=== PATIENT | male | born 1975 | race Caucasian/White ===

== ENCOUNTER 2017-08-19 21:27 | Observation (INO) | payer OTHER ==
--- NOTE | 2017-08-19 21:39 | ED ---
General Adult HPI - General Chief complaint: Chest Pain Stated complaint: Chest Pain Time Seen by Provider: 08/19/17 21:38 Source: patient, RN notes reviewed, old records reviewed Mode of arrival: wheelchair Limitations: no limitations - History of Present Illness Initial comments: This is a 42-year-old male to the ER for reevaluation chest pain left-sided chest pain. Left-sided pressure-like chest pain. Patient has no medical history, former smoker, no family history. Patient takes no medications. Patient's pain has been 3 days left-sided paraplegia coming to, no modifying factors not worse with exertion, no taking a deep breath. No shortness of breath no diaphoresis. Patient has no appetite issues, no nausea or vomiting. No recent fevers. No travel history no sick contacts. - Related Data Home Medications Medication Instructions Recorded Confirmed Famciclovir [Famvir] 500 mg PO Q8HR PRN 08/19/17 08/19/17 Testosterone [Testim 1%] 5 gm TOPICAL DAILY 08/19/17 08/19/17 Allergies Allergy/AdvReac Type Severity Reaction Status Date / Time No Known Allergies Allergy Verified 08/19/17 22:08 Review of Systems ROS Statement: Those systems with pertinent positive or pertinent negative responses have been documented in the HPI. ROS Other: All systems not noted in ROS Statement are negative. Past Medical History Additional Past Medical History / Comment(s): hypoglycemia. History of Any Multi-Drug Resistant Organisms: None Reported Past Surgical History: Back Surgery Past Psychological History: No Psychological Hx Reported Smoking Status: Former smoker Past Alcohol Use History: Daily Past Drug Use History: None Reported General Exam Limitations: no limitations General appearance: alert, in no apparent distress Head exam: Present: atraumatic, normocephalic, normal inspection Eye exam: Present: normal appearance, PERRL, EOMI. Absent: scleral icterus, conjunctival injection, periorbital swelling ENT exam: Present: normal exam, mucous membranes moist Neck exam: Present: normal inspection. Absent: tenderness, meningismus, lymphadenopathy Respiratory exam: Present: normal lung sounds bilaterally. Absent: respiratory distress, wheezes, rales, rhonchi, stridor Cardiovascular Exam: Present: regular rate, normal rhythm, normal heart sounds. Absent: systolic murmur, diastolic murmur, rubs, gallop, clicks GI/Abdominal exam: Present: soft, normal bowel sounds. Absent: distended, tenderness, guarding, rebound, rigid Extremities exam: Present: normal inspection, full ROM, normal capillary refill. Absent: tenderness, pedal edema, joint swelling, calf tenderness Back exam: Present: normal inspection Neurological exam: Present: alert, oriented X3, CN II-XII intact Psychiatric exam: Present: normal affect, normal mood Skin exam: Present: warm, dry, intact, normal color. Absent: rash Course Vital Signs 08/19/17 08/19/17 08/19/17 21:30 22:08 22:59 Temperature 98.2 F Pulse Rate 74 62 Pulse Rate [ 81 [employer] ] Respiratory 16 18 Rate Blood Pressure 160/85 129/77 O2 Sat by Pulse 97 99 Oximetry - Reevaluation(s) Reevaluation #1: 08/19/17 23:42 Patient admitted to the clinic chest pain here in the ER EKG Findings - EKG Comments: EKG Findings:: EKG shows normal sinus rhythm rate of 70, KS 154, QRS 80, QTC 444 Medical Decision Making - Medical Decision Making 42 really ER for chest pain. No cardiac risk factors the patient remained chest pain here in the ER. Patient has CT which is negative for PE, patient will be admitted for cardiac observation - Lab Data Result diagrams: 08/19/17 21:30 08/19/17 21:30 Lab Results 08/19/17 08/19/17 08/19/17 Range/Units 21:30 21:30 21:30 WBC 7.9 (3.8-10.6) k/uL RBC 4.70 (4.30-5.90) m/uL Hgb 14.4 (13.0-17.5) gm/dL Hct 41.0 (39.0-53.0) % MCV 87.3 (80.0-100.0) fL MCH 30.7 (25.0-35.0) pg MCHC 35.2 (31.0-37.0) g/dL RDW 12.7 (11.5-15.5) % Plt Count 217 (150-450) k/uL Neutrophils % 52 % Lymphocytes % 32 % Monocytes % 5 % Eosinophils % 7 % Basophils % 1 % Neutrophils # 4.1 (1.3-7.7) k/uL Lymphocytes # 2.5 (1.0-4.8) k/uL Monocytes # 0.4 (0-1.0) k/uL Eosinophils # 0.6 (0-0.7) k/uL Basophils # 0.1 (0-0.2) k/uL PT (9.0-12.0) sec INR (<1.2) APTT (22.0-30.0) sec D-Dimer (<0.60) mg/L FEU Sodium 140 (137-145) mmol/L Potassium 4.0 (3.5-5.1) mmol/L Chloride 103 (98-107) mmol/L Carbon Dioxide 27 (22-30) mmol/L Anion Gap 10 mmol/L BUN 19 (9-20) mg/dL Creatinine 1.00 (0.66-1.25) mg/dL Est GFR (MDRD) Af Amer >60 (>60 ml/min/1.73 sqM) Est GFR (MDRD) Non-Af >60 (>60 ml/min/1.73 sqM) Glucose 88 (74-99) mg/dL Calcium 9.7 (8.4-10.2) mg/dL Magnesium 2.1 (1.6-2.3) mg/dL Total Bilirubin 0.3 (0.2-1.3) mg/dL AST 32 (17-59) U/L ALT 63 (21-72) U/L Alkaline Phosphatase 65 (38-126) U/L Total Creatine Kinase 267 H (55-170) U/L CK-MB (CK-2) 1.7 (0.0-2.4) ng/mL CK-MB (CK-2) Rel Index 0.6 Troponin I <0.012 (0.000-0.034) ng/mL Total Protein 7.3 (6.3-8.2) g/dL Albumin 4.3 (3.5-5.0) g/dL Lipase 125 (23-300) U/L 08/19/ Range/Units 21:30 WBC (3.8-10.6) k/uL RBC (4.30-5.90) m/uL Hgb (13.0-17.5) gm/dL Hct (39.0-53.0) % MCV (80.0-100.0) fL MCH (25.0-35.0) pg MCHC (31.0-37.0) g/dL RDW (11.5-15.5) % Plt Count (150-450) k/uL Neutrophils % % Lymphocytes % % Monocytes % % Eosinophils % % Basophils % % Neutrophils # (1.3-7.7) k/uL Lymphocytes # (1.0-4.8) k/uL Monocytes # (0-1.0) k/uL Eosinophils # (0-0.7) k/uL Basophils # (0-0.2) k/uL PT 9.7 (9.0-12.0) sec INR 1.0 (<1.2) APTT 22.9 (22.0-30.0) sec D-Dimer 0.85 H (<0.60) mg/L FEU Sodium (137-145) mmol/L Potassium (3.5-5.1) mmol/L Chloride (98-107) mmol/L Carbon Dioxide (22-30) mmol/L Anion Gap mmol/L BUN (9-20) mg/dL Creatinine (0.66-1.25) mg/dL Est GFR (MDRD) Af Amer (>60 ml/min/1.73 sqM) Est GFR (MDRD) Non-Af (>60 ml/min/1.73 sqM) Glucose (74-99) mg/dL Calcium (8.4-10.2) mg/dL Magnesium (1.6-2.3) mg/dL Total Bilirubin (0.2-1.3) mg/dL AST (17-59) U/L ALT (21-72) U/L Alkaline Phosphatase (38-126) U/L Total Creatine Kinase (55-170) U/L CK-MB (CK-2) (0.0-2.4) ng/mL CK-MB (CK-2) Rel Index Troponin I (0.000-0.034) ng/mL Total Protein (6.3-8.2) g/dL Albumin (3.5-5.0) g/dL Lipase (23-300) U/L - Radiology Data Radiology results: report reviewed (CXR is negative), image reviewed Critical Care Time Critical Care Time: Yes Total Critical Care Time: 31 Disposition Clinical Impression: Chest pain Disposition: ADMITTED IP TO THIS [facility] Condition: Good Instructions: Chest Pain (ED) Referrals: Nonstaff,Physician [REFERRING] - 1-2 days
[2017-08-19 21:54] LABS: Basophils # (A) 0.1 k/uL (0-0.2); Basophils % (A) 1 %; Eosinophils # (A) 0.6 k/uL (0-0.7); Eosinophils % (A) 7 %; HGB 14.4 gm/dL (13.0-17.5); Lymphocytes # (A) 2.5 k/uL (1.0-4.8); Lymphocytes % (A) 32 %; MCH 30.7 pg (25.0-35.0); MCHC 35.2 g/dL (31.0-37.0); MCV 87.3 fL (80.0-100.0); Mean Platelet Volume 6.7; Monocytes # (A) 0.4 k/uL (0-1.0); Monocytes % (A) 5 %; Neutrophils # (A) 4.1 k/uL (1.3-7.7); Neutrophils % (A) 52 %; Platelet Count 217 k/uL (150-450); RDW 12.7 % (11.5-15.5); WBC 7.9 k/uL (3.8-10.6)
--- NOTE | 2017-08-19 21:57 | XR ---
EXAMINATION TYPE: XR chest 2V DATE OF EXAM: 08/19/2017 COMPARISON: None HISTORY: 42-year-old male with chest pain TECHNIQUE: AP and lateral views FINDINGS: Heart is upper limits of normal in size. Some peribronchial cuffing is noted. No consolidation or ple ural effusion. Aorta and pulmonary vasculature within normal limits. IMPRESSION: Some peribronchial cuffing could represent bronchitis or chronic asthma. Otherwise, no acute cardiopu lmonary process.
[2017-08-19] MEDS ORDERED: RX INFO: IV CONTRAST WAS GIVEN 1 EACH MISC MISCELLANE PRN (22:00)
[2017-08-19 22:12] LABS: ALT 63 U/L (21-72); AST 32 U/L (17-59); Albumin 4.3 g/dL (3.5-5.0); Alkaline Phosphatase 65 U/L (38-126); Anion Gap 10 mmol/L; Blood Urea Nitrogen 19 mg/dL (9-20); Calcium 9.7 mg/dL (8.4-10.2); Carbon Dioxide 27 mmol/L (22-30); Chloride 103 mmol/L (98-107); Glucose 88 mg/dL (74-99); Lipase 125 U/L (23-300); Magnesium 2.1 mg/dL (1.6-2.3); Sodium 140 mmol/L (137-145); Total Bilirubin 0.3 mg/dL (0.2-1.3); Total Protein 7.3 g/dL (6.3-8.2)
[2017-08-19 22:15] LABS: Creatine Kinase 267 U/L (55-170)
[2017-08-19 22:21] LABS: D-Dimer 0.85 mg/L FEU (<0.60); Partial Thromboplastin Time 22.9 sec (22.0-30.0); Prothrombin Time 9.7 sec (9.0-12.0)
[2017-08-19 22:28] LABS: Creatine Kinase MB 1.7 ng/mL (0.0-2.4); Troponin I <0.012 ng/mL (0.000-0.034)
--- NOTE | 2017-08-19 23:06 | CT ---
EXAM: CT Angiography Chest With Intravenous Contrast CLINICAL HISTORY: Reason: Pain TECHNIQUE: Axial computed tomographic angiography images of the chest with intravenous contrast using pulmonary embolism protocol. DLP is 587.50 mGy-cm. This CT exam was performed using one or more of the following dose reduction techniques: automated exposure control, adjustment of the mA and/or kV according to patient size, and/or use of iterative reconstruction technique. MIP reconstructed images were created and reviewed. COMPARISON: No relevant prior studies available. FINDINGS: Pulmonary arteries: No evidence of pulmonary embolus. Aorta: No acute findings. No thoracic aortic aneurysm. Lungs: Lungs are clear. No mass. Pleural space: No pneumothorax, pleural effusion, or pericardial effusion. Heart: Heart and mediastinum are within normal limits. No significant pericardial effusion. No evidence of RV dysfunction. Bones/joints: Osseous structures are intact. No acute fracture. No dislocation. Soft tissues: Unremarkable. Lymph nodes: Unremarkable. No enlarged lymph nodes. IMPRESSION: No acute findings.
[2017-08-19] MEDS ORDERED: MORPHINE SULFATE 5 MG/ML SYRINGE IV PRN (23:40)
[2017-08-19] MEDS ORDERED: HEPARIN SODIUM,PORCINE 5,000 UNIT/ML 1 ML VIAL IV PRN (23:40)
[2017-08-19] MEDS ORDERED: ASPIRIN 81 MG PO STA (23:40)
[2017-08-19] MEDS ORDERED: NITROGLYCERIN SL TABS 0.4 MG TAB SUBLINGUAL PRN (23:40)
[2017-08-19] MEDS ORDERED: HEPARIN SODIUM,PORCINE 5,000 UNIT/ML 1 ML VIAL IV ONE (23:40)
[2017-08-19] MEDS ORDERED: HEPARIN SOD,PORK IN 0.45% NACL 25,000 UNIT in 0.45% NACL 1 500ML.BAG IV SCH (23:45)
[2017-08-20] MEDS: SODIUM CHLORIDE 0.9% 1,000 ML IV SCH ×2 (00:05→12:33)
[2017-08-20 00:56] VITALS: BMI 40.1
[2017-08-20 03:10] LABS: Mean Platelet Volume 6.7; Platelet Count 201 k/uL (150-450)
[2017-08-20 03:38] LABS: Cholesterol 178 mg/dL (<200); Creatine Kinase 249 U/L (55-170); HDL Cholesterol 47 mg/dL (40-60); LDL Cholesterol,Calculated 101 mg/dL (0-99); Triglycerides 150 mg/dL (<150)
[2017-08-20 03:51] LABS: Creatine Kinase MB 1.5 ng/mL (0.0-2.4); Troponin I <0.012 ng/mL (0.000-0.034)
[2017-08-20 07:39] VITALS: RESP 18
--- NOTE | 2017-08-20 08:50 | P.CRDCN ---
History of Present Illness Consult date: 08/20/17 Requesting physician: Lana Nolan Consult reason: chest pain Chief complaint: Chest pain History of present illness: This is a pleasant 42-year-old gentleman with no prior documented history of hypertension, no diabetes, no hyperlipidemia, quit smoking several years ago, states that he drinks 10-12 alcoholic beverages per week, he presents to the hospital with symptoms of what he describes as an ache in the left side of his chest. He states that the symptoms come and go, they'll occur with or without activity. They last a few seconds, then dissipate, and then return. He denies any associated nausea, no shortness of breath, no diaphoresis. On examination, he does have some chest wall tenderness and does also state that when he takes a very deep breath he can notice the discomfort. He was out shoveling the snow yesterday without any symptoms. EKG on presentation here showed normal sinus rhythm with no acute changes. CBC normal. Sodium 140, potassium 4.0, BUN 19, creatinine 1.0. Troponin's 0.012 2. Cholesterol 178, LDL 101, triglycerides 150, HDL 47. D-dimer 0.8. CTA of the chest negative for pulmonary embolism. Chest x-ray shows some peribronchial cuffing which could represent bronchitis or chronic asthma otherwise no acute cardiopulmonary process. At the time of my examination this morning, he is currently chest pain-free unless he takes a very deep breath, then he can reproduce the pain. Blood pressure 124/70 with a heart rate in the 60s, 96% on room air. Past Medical History Additional Past Medical History / Comment(s): hypoglycemia. History of Any Multi-Drug Resistant Organisms: None Reported Past Surgical History: Back Surgery Past Psychological History: No Psychological Hx Reported Smoking Status: Former smoker Past Alcohol Use History: Daily Past Drug Use History: None Reported - Past Family History Father Family Medical History: Hypertension, Musculoskeletal Disorder Mother Family Medical History: No Reported History Medications and Allergies Home Medications Medication Instructions Recorded Confirmed Type Famciclovir [Famvir] 500 mg PO Q8HR PRN 08/19/17 08/19/17 History Testosterone [Testim 1%] 5 gm TOPICAL DAILY 08/19/17 08/19/17 History Allergies Allergy/AdvReac Type Severity Reaction Status Date / Time No Known Allergies Allergy Verified 08/19/17 22:08 Physical Exam Vitals: Vital Signs Temp Pulse Pulse Resp BP BP Pulse Ox 08/20/17 04:00 98.4 F 61 18 125/70 96 08/20/17 00:12 97.0 F L 08/20/17 00:10 97.5 F L 62 16 122/73 97 08/19/17 23:59 68 18 124/77 98 08/19/17 22:59 62 18 129/77 99 08/19/17 22:08 81 08/19/17 21:30 98.2 F 74 16 160/85 97 Intake and Output 08/19/17 08/20/17 08/20/17 22:59 06:59 14:59 Intake Total 132.333 Balance 132.333 Intake: Intake, IV Titration 132.333 Amount Heparin Sod,Pork in 0.45% 132.333 NaCl 25,000 unit In 0.45 % NaCl 1 500ml.bag @ 8.2 UNITS/KG/HR 20.08 mls/hr IV .Q24H [facility] Rx#: [id number] Other: Voiding Method Toilet # Voids 1 Weight 122.47 kg 130.5 kg PHYSICAL EXAMINATION: HEENT: [Head is atraumatic, normocephalic. Pupils equal, round. Neck is supple. There is no elevated jugular venous pressure.] HEART EXAMINATION: [Heart S1, S2 normal. No murmur or gallop heard.] CHEST EXAMINATION:[ Lungs are clear to auscultation and precussion. No chest wall tenderness is noted on palpation or with deep breathing.] ABDOMEN: [ Soft, nontender. Bowel sounds are heard. No organomegaly noted]. EXTREMITIES:[ 2+ peripheral pulses with no evidence of peripheral edema and no calf tenderness noted]. NEUROLOGIC [patient is awake, alert and oriented -3.] . Results 08/20/17 02:58 08/19/17 21:30 Cardiac Enzymes 08/19/17 08/19/17 08/20/17 Range/Units 21:30 21:30 02:58 AST 32 (17-59) U/L CK-MB (CK-2) 1.7 1.5 (0.0-2.4) ng/mL Troponin I <0.012 <0.012 (0.000-0.034) ng/mL Coagulation 08/19/17 08/20/17 Range/Units 21:30 06:00 PT 9.7 (9.0-12.0) sec APTT 22.9 26.6 (22.0-30.0) sec Lipids 08/20/17 Range/Units 02:58 Triglycerides 150 H (<150) mg/dL Cholesterol 178 (<200) mg/dL HDL Cholesterol 47 (40-60) mg/dL CBC 08/19/17 08/20/17 Range/Units 21:30 02:58 WBC 7.9 (3.8-10.6) k/uL RBC 4.70 (4.30-5.90) m/uL Hgb 14.4 (13.0-17.5) gm/dL Hct 41.0 (39.0-53.0) % Plt Count 217 201 (150-450) k/uL Comprehensive Metabolic Panel 08/19/17 Range/Units 21:30 Sodium 140 (137-145) mmol/L Potassium 4.0 (3.5-5.1) mmol/L Chloride 103 (98-107) mmol/L Carbon Dioxide 27 (22-30) mmol/L BUN 19 (9-20) mg/dL Creatinine 1.00 (0.66-1.25) mg/dL Glucose 88 (74-99) mg/dL Calcium 9.7 (8.4-10.2) mg/dL AST 32 (17-59) U/L ALT 63 (21-72) U/L Alkaline Phosphatase 65 (38-126) U/L Total Protein 7.3 (6.3-8.2) g/dL Albumin 4.3 (3.5-5.0) g/dL Current Medications Generic Name Dose Route Start Last Admin Trade Name Freq PRN Reason Stop Dose Admin Aspirin 325 mg 08/21/17 09:00 Aspirin PO DAILY [facility] Atorvastatin Calcium 80 mg 08/20/17 09:00 Lipitor PO DAILY [facility] Heparin Sodium (Porcine) 0 unit 08/19/17 23:40 08/20/17 06:45 Heparin IV 4,000 unit Q6HR PRN Administration Low PTT Protocol Heparin Sodium/Sodium Chloride 500 mls @ 20.08 mls/hr 08/19/17 23:45 06:42 25,000 unit/ Sodium Chloride IV 11.16 units/kg/hr .Q24H [facility] 27.33 mls/hr Protocol Titration 8.2 UNITS/KG/HR Sodium Chloride 1,000 mls @ 100 mls/hr 08/19/17 23:45 08/20/17 00:05 Saline 0.9% IV 100 mls/hr .Q10H [facility] Administration Metoprolol Tartrate 25 mg 08/20/17 09:00 Lopressor PO BID [facility] Miscellaneous Information 1 each 08/19/17 22:00 08/19/17 22:59 Rx Info: Iv Contrast Was Given MISCELLANE 08/21/17 22:00 1 each DAILY PRN Administration Per Protocol Morphine Sulfate 4 mg 08/19/17 23:40 Morphine Sulfate IV Q5M PRN Chest Pain Nitroglycerin 0.4 mg 08/19/17 23:40 Nitrostat SUBLINGUAL Q5M PRN Chest Pain Intake and Output 08/19/17 08/20/17 08/20/17 22:59 06:59 14:59 Intake Total 132.333 Balance 132.333 Intake: Intake, IV Titration 132.333 Amount Heparin Sod,Pork in 0.45% 132.333 NaCl 25,000 unit In 0.45 % NaCl 1 500ml.bag @ 8.2 UNITS/KG/HR 20.08 mls/hr IV .Q24H [facility] Rx#: [id number] Other: Voiding Method Toilet # Voids 1 Weight 122.47 kg 130.5 kg 08/20/17 02:58 08/19/17 21:30 EKG Interpretations (text) EKG shows normal sinus rhythm with no acute changes. Assessment and Plan Plan: Assessment and plan #1 chest discomfort, atypical for acute coronary syndrome. Troponins negative 2. EKG shows normal sinus rhythm with no acute changes. #2 coronary risk factors negative for hypertension, no diabetes, no hyperlipidemia, nonsmoker. Plan We will obtain an echocardiogram with Doppler study. Obtain third troponin value. Patient has been recommended to undergo stress testing which will be ordered today. Further recommendations will be based on these findings and the patient's clinical course. DNP note has been reviewed, I agree with a documented findings and plan of care. Patient was seen and examined.
[2017-08-20] MEDS ORDERED: ATORVASTATIN 80 MG TAB PO SCH (09:00)
[2017-08-20] MEDS ORDERED: METOPROLOL TARTRATE 25 MG TAB PO SCH (09:00)
[2017-08-20 09:58] VITALS: TEMP 97.1
[2017-08-20 10:08] LABS: Creatine Kinase 228 U/L (55-170)
[2017-08-20 10:21] LABS: Creatine Kinase MB 1.4 ng/mL (0.0-2.4); Troponin I <0.012 ng/mL (0.000-0.034)
--- NOTE | 2017-08-20 11:52 | ECHOF ---
Referral Reason: MEASUREMENTS -------- HEIGHT: 180.3 cm WEIGHT: 130.2 kg BP: 122/73 RVIDd: 3.5 cm (< 3.3) IVSd: 1.2 cm (0.6 - 1.1) LVIDd: 5.4 cm (3.9 - 5.3) LVPWd: 1.2 cm (0.6 - 1.1) IVSs: 1.9 cm LVIDs: 3.5 cm LVPWs: 1.6 cm LA Diam: 4.2 cm (2.7 - 3.8) LAESV Index (A-L): 31.70 ml/m Ao Diam: 3.8 cm (2.0 - 3.7) AV Cusp: 2.7 cm (1.5 - 2.6) MV EXCURSION: 23.601 mm (> 18.000) MV EF SLOPE: 79 mm/s (70 - 150) EPSS: 0.4 cm MV E Sukhjinder: 0.82 m/s MV DecT: 204 ms MV A Sukhjinder: 0.59 m/s MV E/A Ratio: 1.39 FINDINGS -------- Sinus rhythm. This was a technically good study. The left ventricular size is normal. There is borderline concentric left ventricular hypertrophy. Overall left ventricular systolic function is normal with, an EF between 60 - 65 %. The right ventricle is normal in size. LA is midly dilated 29-33ml/m2. The right atrial size is normal. The aortic valve is trileaflet and appears structurally normal. The mitral valve is normal. The tricuspid valve appears structurally normal. There is no pulmonic regurgitation present. The aortic root is dilated measuring 3.8cm. Normal inferior vena cava with normal inspiratory collapse consistent with estimated right atrial pre ssure of 5 mmHg. There is no pericardial effusion. CONCLUSIONS -------- 1. Sinus rhythm. 2. This was a technically good study. 3. The left ventricular size is normal. 4. There is borderline concentric left ventricular hypertrophy. 5. Overall left ventricular systolic function is normal with, an EF between 60 - 65 %. 6. The right ventricle is normal in size. 7. LA is midly dilated 29-33ml/m2. 8. The right atrial size is normal. 9. The aortic valve is trileaflet and appears structurally normal. 10. The mitral valve is normal. 11. The tricuspid valve appears structurally normal. 12. There is no pulmonic regurgitation present. 13. The aortic root is dilated measuring 3.8cm. 14. Normal inferior vena cava with normal inspiratory collapse consistent with estimated right atrial pressure of 5 mmHg. 15. There is no pericardial effusion. METER READER: Sandy Mathew RDCS
[2017-08-20 12:46] VITALS: BP 118/62; PULSE 58
--- NOTE | 2017-08-20 13:24 | ECHOS ---
STRESS ECHOCARDIOGRAM DATE OF SERVICE: 08/20/2017 INDICATIONS: Chest pain. MEDICATIONS: BASELINE HEART RATE: 59 BASELINE BLOOD PRESSURE: 144/89 MAXIMUM HEART RATE: 153 MAXIMUM BLOOD PRESSURE: 208/70 85% MPHR: 150 100% MPHR: 176 METS: 11.5 MAXIMUM STAGE REACHED: IV TOTAL EXERCISE TIME: 10 minutes CLINICAL INFORMATION: Baseline EKG revealed normal sinus rhythm without significant ST-T changes. Patient walked on a standard [place] protocol for a total duration of 10 minutes, achieved a maximal heart rate of 153 beats per minute. He developed fatigue and shortness of breath, but did not have any angina. At peak exercise, he developed some fatigue and shortness of breath. EKG did not reveal any ST-segment changes to indicate ischemia. By EKG criteria, this is a negative stress test with good exercise capacity. Baseline echo images revealed normal wall motion and wall thickening of all segments. At peak exercise, there was good augmentation of left ventricular wall motion and wall thickening of all segments suggesting that there is no evidence of stress-induced ischemia on this study. FINAL IMPRESSION: 1. Good exercise capacity with a negative stress test by EKG criteria. 2. Normal stress echocardiogram without evidence of ischemia. MMODL / IJN: [id number] /
--- NOTE | 2017-08-20 14:09 | P.HPIM ---
Review of Systems REVIEW OF SYSTEMS: CONSTITUTIONAL: No fever, no malaise, no fatigue. HEENT: No recent visual problems or hearing problems. Denied any sore throat. CARDIOVASCULAR: No orthopnea, PND, no palpitations, no syncope. PULMONARY: No shortness of breath, no cough, no hemoptysis. GASTROINTESTINAL: No diarrhea, no nausea, no vomiting, no abdominal pain. Normoactive bowel sounds. NEUROLOGICAL: No headaches, no weakness, no numbness. HEMATOLOGICAL: Denies any bleeding or petechiae. GENITOURINARY: Denies any burning micturition, frequency, or urgency. MUSCULOSKELETAL/RHEUMATOLOGICAL: Denies any joint pain, swelling, or any muscle pain. ENDOCRINE: Denies any polyuria or polydipsia. The rest of the 14-point review of systems is negative. Past Medical History Additional Past Medical History / Comment(s): hypoglycemia. History of Any Multi-Drug Resistant Organisms: None Reported Past Surgical History: Back Surgery Past Psychological History: No Psychological Hx Reported Smoking Status: Former smoker Past Alcohol Use History: Daily Past Drug Use History: None Reported - Past Family History Father Family Medical History: Hypertension, Musculoskeletal Disorder Mother Family Medical History: No Reported History Medications and Allergies Home Medications Medication Instructions Recorded Confirmed Type Famciclovir [Famvir] 500 mg PO Q8HR PRN 08/19/17 08/19/17 History Testosterone [Testim 1%] 5 gm TOPICAL DAILY 08/19/17 08/19/17 History Albuterol Inhaler [Ventolin Hfa 1 - 2 puff INHALATION Q6HR PRN #1 08/20/17 Rx Inhaler] inhaler Allergies Allergy/AdvReac Type Severity Reaction Status Date / Time No Known Allergies Allergy Verified 08/19/17 22:08 Physical Exam Vitals: Vital Signs Temp Pulse Pulse Resp BP BP Pulse Ox 08/20/17 12:00 97.1 F L 58 L 18 118/62 96 08/20/17 08:00 97.1 F L 59 L 18 122/66 96 08/20/17 04:00 98.4 F 61 18 125/70 96 08/20/17 00:12 97.0 F L 08/20/17 00:10 97.5 F L 62 16 122/73 97 08/19/17 23:59 68 18 124/77 98 08/19/17 22:59 62 18 129/77 99 08/19/17 22:08 81 08/19/17 21:30 98.2 F 74 16 160/85 97 Intake and Output 08/19/17 08/20/17 08/20/17 22:59 06:59 14:59 Intake Total 132.333 120 Balance 132.333 120 Intake: Intake, IV Titration 132.333 Amount Heparin Sod,Pork in 0.45% 132.333 NaCl 25,000 unit In 0.45 % NaCl 1 500ml.bag @ 8.2 UNITS/KG/HR 20.08 mls/hr IV .Q24H [facility] Rx#: [id number] Oral 120 Other: Voiding Method Toilet # Voids 1 1 # Bowel Movements 0 Weight 122.47 kg 130.5 kg PHYSICAL EXAMINATION: GENERAL: The patient is alert and oriented x3, not in any acute distress. Well developed, well nourished. Morbidly obese HEENT: Pupils are round and equally reacting to light. EOMI. No scleral icterus. No conjunctival pallor. Normocephalic, atraumatic. No pharyngeal erythema. No thyromegaly. CARDIOVASCULAR: S1 and S2 present. No murmurs, rubs, or gallops. PULMONARY: Chest is clear to auscultation, no wheezing or crackles. ABDOMEN: Soft, nontender, nondistended, normoactive bowel sounds. No palpable organomegaly. MUSCULOSKELETAL: No joint swelling or deformity. EXTREMITIES: No cyanosis, clubbing, or pedal edema. NEUROLOGICAL: Gross neurological examination did not reveal any focal deficits. SKIN: No rashes. Results CBC & Chem 7: 08/20/17 02:58 08/19/17 21:30 Labs: Abnormal Lab Results - Last 24 Hours (Table) 08/19/17 08/19/17 08/20/17 Range/Units 21:30 21:30 02:58 APTT (22.0-30.0) sec D-Dimer 0.85 H (<0.60) mg/L FEU Total Creatine Kinase 267 H 249 H (55-170) U/L Triglycerides (<150) mg/dL LDL Cholesterol, Calc (0-99) mg/dL 08/20/17 08/20/17 08/20/17 Range/Units 02:58 09:18 09:18 APTT 37.5 H (22.0-30.0) sec D-Dimer (<0.60) mg/L FEU Total Creatine Kinase 228 H (55-170) U/L Triglycerides 150 H (<150) mg/dL LDL Cholesterol, Calc 101 H (0-99) mg/dL Thrombosis Risk Factor Assmnt - Choose All That Apply Any of the Below Risk Factors Present?: No
--- NOTE | 2017-08-20 14:39 | P.DS ---
Providers Date of admission: 08/19/17 23:42 Attending physician: Lana Nolan Consults: 08/19/17 23:40 Consult Physician Urgent Consulting Provider: Dash Patiño Consult Reason/Comments: cp Do you want consulting provider notified?: Yes Primary care physician: Yusuf Hoskins MD Hospital Course: refer to my HPI Patient Condition at Discharge: Good Plan - Discharge Summary Discharge Rx Participant: No New Discharge Prescriptions: New Albuterol Inhaler [Ventolin Hfa Inhaler] 1 - 2 puff INHALATION Q6HR PRN #1 inhaler PRN Reason: Shortness Of Breath Or Wheezing No Action Famciclovir [Famvir] 500 mg PO Q8HR PRN PRN Reason: Cold Sores Testosterone [Testim 1%] 5 gm TOPICAL DAILY Discharge Medication List Famciclovir [Famvir] 500 mg PO Q8HR PRN 08/19/17 [History] Testosterone [Testim 1%] 5 gm TOPICAL DAILY 08/19/17 [History] Albuterol Inhaler [Ventolin Hfa Inhaler] 1 - 2 puff INHALATION Q6HR PRN #1 inhaler 08/20/17 [Rx] Follow up Appointment(s)/Referral(s): Nonstaff,Physician [REFERRING] - 3 Days Patient Instructions/Handouts: Chest Pain (ED) Discharge Disposition: HOME SELF-CARE
[2017-08-21] MEDS ORDERED: ASPIRIN 325 MG TAB PO SCH (09:00)
== END 2017-08-20 15:43 | disposition home or self-care (01) ==
LOC: EC 21:27 → 6SEL 23:42
PROVIDERS: ADMIT Hospitalist; ATTEND Hospitalist
DX: R07.89 Other chest pain (principal); R06.2 Wheezing; Z68.41 Body mass index [BMI] 40.0-44.9, adult; E66.01 Morbid (severe) obesity due to excess calories; Z87.891 Personal history of nicotine dependence; Z82.49 Family history of ischemic heart disease and other diseases of the circulatory system
CPT/HCPCS: 99291; 96374 ×2; 96376; 36415; 93005; 93017; 93306; 93350; 85379; 80061; 80053; 82550 ×2; 82553 ×2; 83690; 83735; 84484 ×2; 85025; 85049; 85610; 85730 ×2; 71020; 71275; G0378 ×2; J1644 ×2; Q9967

== ENCOUNTER 2017-12-27 18:29 | Inpatient (IN) | payer OTHER ==
[2017-12-27 20:53] LABS: Basophils % (A) 0 %; Eosinophils # (A) 0.5 k/uL (0-0.7); Eosinophils % (A) 6 %; HCT 39.5 % (39.0-53.0); HGB 14.2 gm/dL (13.0-17.5); Lymphocytes # (A) 1.8 k/uL (1.0-4.8); Lymphocytes % (A) 22 %; MCH 29.7 pg (25.0-35.0); MCHC 36.1 g/dL (31.0-37.0); MCV 82.3 fL (80.0-100.0); Mean Platelet Volume 6.6; Monocytes # (A) 0.5 k/uL (0-1.0); Monocytes % (A) 7 %; Neutrophils # (A) 5.1 k/uL (1.3-7.7); Neutrophils % (A) 63 %; Platelet Count 246 k/uL (150-450); RDW 12.5 % (11.5-15.5); WBC 8.1 k/uL (3.8-10.6)
[2017-12-27 21:02] LABS: ALT 34 U/L (21-72); AST 35 U/L (17-59); Albumin 4.4 g/dL (3.5-5.0); Alkaline Phosphatase 67 U/L (38-126); Anion Gap 18 mmol/L; Blood Urea Nitrogen 14 mg/dL (9-20); Calcium 9.6 mg/dL (8.4-10.2); Carbon Dioxide 27 mmol/L (22-30); Chloride 98 mmol/L (98-107); Glucose 79 mg/dL (74-99); Sodium 143 mmol/L (137-145); Total Bilirubin 0.7 mg/dL (0.2-1.3); Total Protein 7.4 g/dL (6.3-8.2)
[2017-12-27] MEDS ORDERED: RX INFO: IV CONTRAST WAS GIVEN 1 EACH MISC MISCELLANE PRN (21:24)
[2017-12-27 21:48] LABS: Amylase 50 U/L (30-110); Lipase 92 U/L (23-300)
[2017-12-27 21:59] LABS: Appearance,Urine Clear (Clear); Bacteria,Urine Rare /hpf; Bilirubin,Urine 1+ (Negative); Blood,Urine Small (Negative); Color,Urine Yellow; Glucose,Urine (UA) Negative (Negative); Ketones,Urine 3+ (Negative); Leukocyte Esterase,Urine Small (Negative); Mucus,Urine Moderate /hpf; Nitrite,Urine Negative (Negative); PH, Urine 5.5 (5.0-8.0); Protein,Urine 1+ (Negative); RBC,Urine 3 /hpf (0-5); Specific Gravity,Urine 1.029 (1.001-1.035); WBC,Urine 2 /hpf (0-5)
--- NOTE | 2017-12-27 22:10 | CT ---
EXAMINATION TYPE: CT abdomen pelvis w con DATE OF EXAM: 12/27/2017 COMPARISON: Department protocol HISTORY: Left lower quadrant pain with fever and chills. CT DLP: 1741.3 mGycm Automated exposure control for dose reduction was used. TECHNIQUE: Helical acquisition of images was performed from the lung bases through the pelvis. CONTRAST: Performed without Oral Contrast and with IV Contrast, patient injected with 100 mL of Isovu e M300. FINDINGS: LUNG BASES: No significant abnormality is appreciated. LIVER/GB: No significant abnormality is appreciated. PANCREAS: No significant abnormality is seen. SPLEEN: No significant abnormality is seen. ADRENALS: No significant abnormality is seen. KIDNEYS: No significant abnormality is seen. FREE AIR: No free air is visualized. RETROPERITONEAL ADENOPATHY: None visualized REPRODUCTIVE ORGANS: No significant abnormality is seen URINARY BLADDER: No significant abnormality is seen. PELVIC ADENOPATHY: None visualized. OSSEOUS STRUCTURES: No significant abnormality is seen. BOWEL: In the mid descending: There is a focus of acute infiltrate change around the diverticulum ar ising posteriorly from the descending colon seen as reticulation within the pericolonic fat and exten ding posteriorly to involve the lateral conal fascia and the anterior renal fascia as evidenced by th eir ill-defined significant and indistinctness. No associated fluid or gas collections.. VASCULATURE: Unremarkable. IMPRESSION: MILD/MODERATE NONCOMPLICATED DIVERTICULITIS OF THE MID DESCENDING COLON.
--- NOTE | 2017-12-27 22:17 | ED ---
Abdominal Pain HPI - General Chief Complaint: Abdominal Pain Stated Complaint: Abd Pain Time Seen by Provider: 12/27/17 20:42 Source: patient Mode of arrival: ambulatory Limitations: no limitations - History of Present Illness Initial Comments: 42-year-old male patient presents to the emergency department today for complaints of left lower quadrant abdominal pain. Patient states he has had this pain since Saturday. Patient states that he did see his primary care physician was diagnosed with possible diverticulitis and started on antibiotics. Patient states he has been taking antibiotics as prescribed. States that the pain has persisted. Patient states that he did have issues with constipation last Saturday however those symptoms resolved and he now has diarrhea. Patient denies any fever or chills with this. States he has been mildly nauseated without any vomiting. Denies any radiation of the pain into his back. States he is urinating without difficulty. Patient denies any recent rash, shortness breath, chest pain, hematochezia or melena, back pain, numbness , tingling, dizziness, weakness, hematuria, dysuria, urinary urgency, urinary frequency, headache, visual changes, or any other complaints. - Related Data Home Medications Medication Instructions Recorded Confirmed Ciprofloxacin HCl [Cipro] 500 mg PO BID 12/27/17 12/27/17 Fish Oil/Dha/Epa [Fish Oil 1,200 1 cap PO DAILY 12/27/17 12/27/17 mg Fish Oil] Magnesium 200 mg PO DAILY 12/27/17 12/27/17 Multivitamins, Thera [Multivitamin 1 tab PO DAILY 12/27/17 12/27/17 (formulary)] metroNIDAZOLE [Flagyl] 500 mg PO BID 12/27/17 12/27/17 Allergies Allergy/AdvReac Type Severity Reaction Status Date / Time No Known Allergies Allergy Verified 12/27/17 20:11 Review of Systems ROS Statement: Those systems with pertinent positive or pertinent negative responses have been documented in the HPI. ROS Other: All systems not noted in ROS Statement are negative. Past Medical History Additional Past Medical History / Comment(s): hypoglycemia. History of Any Multi-Drug Resistant Organisms: None Reported Past Surgical History: Back Surgery Past Psychological History: No Psychological Hx Reported Smoking Status: Former smoker Past Alcohol Use History: Occasional Past Drug Use History: None Reported - Past Family History Father Family Medical History: Hypertension, Musculoskeletal Disorder Mother Family Medical History: No Reported History General Exam Limitations: no limitations General appearance: alert, in no apparent distress, other (This is a well- developed, well-nourished adult male patient in no acute distress. Vital signs upon presentation are temperature 97.2F, pulse 89, respirations 18, blood pressure 134/82, pulse ox 96% on room air.) Eye exam: Present: normal appearance, PERRL, EOMI. Absent: scleral icterus, conjunctival injection, periorbital swelling ENT exam: Present: normal exam, normal oropharynx, mucous membranes moist Respiratory exam: Present: normal lung sounds bilaterally. Absent: respiratory distress, wheezes, rales, rhonchi, stridor Cardiovascular Exam: Present: regular rate, normal rhythm, normal heart sounds. Absent: systolic murmur, diastolic murmur, rubs, gallop, clicks GI/Abdominal exam: Present: soft, tenderness (Left lower quadrant and suprapubic abdominal tenderness), normal bowel sounds. Absent: distended, guarding, rebound, rigid Neurological exam: Present: alert, oriented X3, CN II-XII intact Psychiatric exam: Present: normal affect, normal mood Skin exam: Present: warm, dry, intact, normal color. Absent: rash Course Vital Signs 12/27/17 12/27/17 18:41 22:00 Temperature 97.2 F L 98.6 F Pulse Rate 89 Respiratory 18 17 Rate Blood Pressure 134/82 119/69 O2 Sat by Pulse 96 95 Oximetry Medical Decision Making - Medical Decision Making 42-year-old male patient presented to the emergency department today for evaluation of left lower quadrant abdominal pain. Physical examination did reveal left lower quadrant abdominal tenderness. Labs reviewed and are unremarkable. CT of the abdomen and pelvis did show mild to moderate diverticulitis in the mid descending colon. Patient had completed 2 days worth of Cipro and Flagyl without any relief of his pain. We will admit to the hospital for IV antibiotics for failed outpatient treatment. Patient will be admitted to Dr. Perales. - Lab Data Result diagrams: 12/27/17 20:20 12/27/17 20:20 Lab Results 12/27/17 12/27/17 12/27/17 Range/Units 20:20 20:20 20:20 WBC 8.1 (3.8-10.6) k/uL RBC 4.80 (4.30-5.90) m/uL Hgb 14.2 (13.0-17.5) gm/dL Hct 39.5 (39.0-53.0) % MCV 82.3 (80.0-100.0) fL MCH 29.7 (25.0-35.0) pg MCHC 36.1 (31.0-37.0) g/dL RDW 12.5 (11.5-15.5) % Plt Count 246 (150-450) k/uL Neutrophils % 63 % Lymphocytes % 22 % Monocytes % 7 % Eosinophils % 6 % Basophils % 0 % Neutrophils # 5.1 (1.3-7.7) k/uL Lymphocytes # 1.8 (1.0-4.8) k/uL Monocytes # 0.5 (0-1.0) k/uL Eosinophils # 0.5 (0-0.7) k/uL Basophils # 0.0 (0-0.2) k/uL Sodium 143 (137-145) mmol/L Potassium 4.0 (3.5-5.1) mmol/L Chloride 98 (98-107) mmol/L Carbon Dioxide 27 (22-30) mmol/L Anion Gap 18 mmol/L BUN 14 (9-20) mg/dL Creatinine 0.80 (0.66-1.25) mg/dL Est GFR (CKD-EPI)AfAm >90 (>60 ml/min/1.73 sqM) Est GFR (CKD-EPI)NonAf >90 (>60 ml/min/1.73 sqM) Glucose 79 (74-99) mg/dL Calcium 9.6 (8.4-10.2) mg/dL Total Bilirubin 0.7 (0.2-1.3) mg/dL AST 35 (17-59) U/L ALT 34 (21-72) U/L Alkaline Phosphatase 67 (38-126) U/L Total Protein 7.4 (6.3-8.2) g/dL Albumin 4.4 (3.5-5.0) g/dL Amylase 50 (30-110) U/L Lipase 92 (23-300) U/L Urine Color Urine Appearance (Clear) Urine pH (5.0-8.0) Ur Specific [place] (1.001-1.035) Urine Protein (Negative) Urine Glucose (UA) (Negative) Urine Ketones (Negative) Urine Blood (Negative) Urine Nitrite (Negative) Urine Bilirubin (Negative) Urine Urobilinogen (<2.0) mg/dL Ur Leukocyte Esterase (Negative) Urine RBC (0-5) /hpf Urine WBC (0-5) /hpf Urine Bacteria (None) /hpf Urine Mucus (None) /hpf 12/27/17 Range/Units 20:30 WBC (3.8-10.6) k/uL RBC (4.30-5.90) m/uL Hgb (13.0-17.5) gm/dL Hct (39.0-53.0) % MCV (80.0-100.0) fL MCH (25.0-35.0) pg MCHC (31.0-37.0) g/dL RDW (11.5-15.5) % Plt Count (150-450) k/uL Neutrophils % % Lymphocytes % % Monocytes % % Eosinophils % % Basophils % % Neutrophils # (1.3-7.7) k/uL Lymphocytes # (1.0-4.8) k/uL Monocytes # (0-1.0) k/uL Eosinophils # (0-0.7) k/uL Basophils # (0-0.2) k/uL Sodium (137-145) mmol/L Potassium (3.5-5.1) mmol/L Chloride (98-107) mmol/L Carbon Dioxide (22-30) mmol/L Anion Gap mmol/L BUN (9-20) mg/dL Creatinine (0.66-1.25) mg/dL Est GFR (CKD-EPI)AfAm (>60 ml/min/1.73 sqM) Est GFR (CKD-EPI)NonAf (>60 ml/min/1.73 sqM) Glucose (74-99) mg/dL Calcium (8.4-10.2) mg/dL Total Bilirubin (0.2-1.3) mg/dL AST (17-59) U/L ALT (21-72) U/L Alkaline Phosphatase (38-126) U/L Total Protein (6.3-8.2) g/dL Albumin (3.5-5.0) g/dL Amylase (30-110) U/L Lipase (23-300) U/L Urine Color Yellow Urine Appearance Clear (Clear) Urine pH 5.5 (5.0-8.0) Ur Specific [place] 1.029 (1.001-1.035) Urine Protein 1+ H (Negative) Urine Glucose (UA) Negative (Negative) Urine Ketones 3+ H (Negative) Urine Blood Small H (Negative) Urine Nitrite Negative (Negative) Urine Bilirubin 1+ H (Negative) Urine Urobilinogen 2.0 (<2.0) mg/dL Ur Leukocyte Esterase Small H (Negative) Urine RBC 3 (0-5) /hpf Urine WBC 2 (0-5) /hpf Urine Bacteria Rare H (None) /hpf Urine Mucus Moderate H (None) /hpf - Radiology Data Radiology results: report reviewed, image reviewed CT of the abdomen and pelvis with contrast was obtained. Report was reviewed in its entirety. Specifically the bowel shows in the mid descending colon focus of acute infiltrate change around the diverticulum arising posteriorly from the descending colon seen as reticulation within the pericolonic fat and extending posteriorly to involve the lateroconal fascia in the anterior renal fascia as a evidenced by ill-defined significant and indistinctness. No associated fluid or gas collections. Impression by Dr. Savage Jernigan shows mild to moderate noncompensated diverticulitis of the mid descending colon. Disposition Clinical Impression: Diverticulitis Disposition: ADMITTED IP TO THIS [facility] Condition: Serious Decision to Admit Reason: Admit from EC Decision Date: 12/27/17 Decision Time: 23:46
[2017-12-27] MEDS ORDERED: NALOXONE 0.4 MG/ML 1 ML VIAL IV PRN (23:43)
[2017-12-27] MEDS ORDERED: ONDANSETRON 4 MG/2 ML VIAL IVP PRN (23:43)
[2017-12-27] MEDS ORDERED: LEVOFLOXACIN 500MG-D5W PMX 500 MG in DEXTROSE/WATER 1 100ML.BAG IVPB STA (23:45)
[2017-12-27] MEDS ORDERED: metroNIDAZOLE-NS PMX 500 MG in SALINE 1 100ML.BAG IVPB STA (23:45)
[2017-12-28] MEDS: SODIUM CHLORIDE 0.9% 1,000 ML IV SCH ×2 (00:58→19:51)
[2017-12-28] MEDS ORDERED: NON-FORMULARY DRUG (Fish Oil/Dha/Epa [Fish Oil 1,200 Mg Fish Oil] 1 CAP) PO SCH (09:00)
[2017-12-28] MEDS ORDERED: KETOROLAC 30 MG/ML 1 ML VIAL IVP PRN (09:47)
[2017-12-28] MEDS: metroNIDAZOLE-NS PMX 500 MG in SALINE 1 100ML.BAG IVPB SCH ×2 (10:10→16:16)
[2017-12-28] MEDS ORDERED: MULTIVITAMINS, THERA 1 EACH TAB PO SCH (12:00)
[2017-12-28] MEDS ORDERED: MAGNESIUM OXIDE 400 MG TAB PO SCH (12:00)
--- NOTE | 2017-12-28 15:05 | P.HPIM ---
History of Present Illness 42-year-old male patient came in emergency department with complaints of left lower quadrant abdominal pain sharp and the squeezing he says his pain is about 3/10 at the time now about 1/10 along with diarrhea multiple episodes C. diff was negative patient is found to have diverticulitis mild to moderate, although patient has been taking oral antibiotics ciprofloxacin and metronidazole as an outpatient his symptoms did not improve because of which patient came to ER and patient was started on IV levofloxacin and metronidazole. Patient had one episode of diarrhea since morning. I gave the patient option of going home later in the day on oral antibiotics are staying in the tomorrow morning since his abdominal pain continued in spite of taking antibiotics for 2 days. Although it appears like patient did have some improvement in symptoms since the onset of symptoms about 3-4 days ago Review of Systems REVIEW OF SYSTEMS: CONSTITUTIONAL: No fever, no malaise, no fatigue. HEENT: No recent visual problems or hearing problems. Denied any sore throat. CARDIOVASCULAR: No chest pain, orthopnea, PND, no palpitations, no syncope. PULMONARY: No shortness of breath, no cough, no hemoptysis. GASTROINTESTINAL: as described in HPI NEUROLOGICAL: No headaches, no weakness, no numbness. HEMATOLOGICAL: Denies any bleeding or petechiae. GENITOURINARY: Denies any burning micturition, frequency, or urgency. MUSCULOSKELETAL/RHEUMATOLOGICAL: Denies any joint pain, swelling, or any muscle pain. ENDOCRINE: Denies any polyuria or polydipsia. The rest of the 14-point review of systems is negative. Past Medical History Additional Past Medical History / Comment(s): hypoglycemia - episode as a young adult. No further issues with this. Shortness of Breath on exercise intermittently. History of Any Multi-Drug Resistant Organisms: None Reported Past Surgical History: Back Surgery Additional Past Surgical History / Comment(s): Back Surgery 2003 - slipped disc Past Anesthesia/Blood Transfusion Reactions: No Reported Reaction Past Psychological History: No Psychological Hx Reported Smoking Status: Former smoker Past Alcohol Use History: Occasional Past Drug Use History: None Reported - Past Family History Father Family Medical History: Hypertension, Musculoskeletal Disorder Mother Family Medical History: No Reported History Medications and Allergies Home Medications Medication Instructions Recorded Confirmed Type Ciprofloxacin HCl [Cipro] 500 mg PO BID 12/27/17 12/27/17 History Fish Oil/Dha/Epa [Fish Oil 1,200 1 cap PO DAILY 12/27/17 12/27/17 History mg Fish Oil] Magnesium 200 mg PO DAILY 12/27/17 12/27/17 History Multivitamins, Thera [Multivitamin 1 tab PO DAILY 12/27/17 12/27/17 History (formulary)] metroNIDAZOLE [Flagyl] 500 mg PO BID 12/27/17 12/27/17 History Allergies Allergy/AdvReac Type Severity Reaction Status Date / Time No Known Allergies Allergy Verified 12/27/17 20:11 Physical Exam Vitals: Vital Signs Temp Pulse Pulse Resp BP BP Pulse Ox 12/28/17 14:21 98.0 F 64 16 113/77 97 12/28/17 08:11 98.0 F 63 16 122/77 93 L 12/28/17 06:00 97.5 F L 55 L 16 117/74 95 12/28/17 01:45 97.5 F L 55 L 16 117/74 95 12/28/17 00:54 98.1 F 58 L 18 120/64 95 12/27/17 22:00 98.6 F 17 119/69 95 12/27/17 18:41 97.2 F L 89 18 134/82 96 Intake and Output 12/28/17 12/28/17 12/28/17 06:59 14:59 22:59 Intake Total 525 Balance 525 Intake: Intake, IV Titration 400 Amount Levofloxacin 500Mg-D5w 100 Pmx 500 mg In Dextrose/ Water 1 100ml.bag @ 100 mls/hr IVPB ONCE STA Rx#: [id number] Sodium Chloride 0.9% 1, 200 000 ml @ 50 mls/hr IV . Q20H RENETTA Rx#:[id number] metroNIDAZOLE-NS PMX 500 100 mg In Saline 1 100ml.bag @ 100 mls/hr IVPB ONCE STA Rx#:[id number] Oral 125 Other: Voiding Method Toilet Toilet # Voids 3 PHYSICAL EXAMINATION: GENERAL: The patient is alert and oriented x3, not in any acute distress. Well developed, well nourished. HEENT: Pupils are round and equally reacting to light. EOMI. No scleral icterus. No conjunctival pallor. Normocephalic, atraumatic. No pharyngeal erythema. No thyromegaly. CARDIOVASCULAR: S1 and S2 present. No murmurs, rubs, or gallops. PULMONARY: Chest is clear to auscultation, no wheezing or crackles. ABDOMEN: Soft, nontender, nondistended, normoactive bowel sounds. No palpable organomegaly. MUSCULOSKELETAL: No joint swelling or deformity. EXTREMITIES: No cyanosis, clubbing, or pedal edema. NEUROLOGICAL: Gross neurological examination did not reveal any focal deficits. SKIN: No rashes. Results CBC & Chem 7: 12/27/17 20:20 12/27/17 20:20 Labs: Abnormal Lab Results - Last 24 Hours (Table) 12/27/17 Range/Units 20:30 Urine Protein 1+ H (Negative) Urine Ketones 3+ H (Negative) Urine Blood Small H (Negative) Urine Bilirubin 1+ H (Negative) Ur Leukocyte Esterase Small H (Negative) Urine Bacteria Rare H (None) /hpf Urine Mucus Moderate H (None) /hpf Microbiology - Last 24 Hours (Table) 12/27/17 20:30 Urine Culture - Preliminary Urine,Clean Catch Thrombosis Risk Factor Assmnt - Choose All That Apply Any of the Below Risk Factors Present?: Yes Each Factor Represents 1 point: Age 41-60 years Other Risk Factors: No Thrombosis Risk Factor Assessment Total Risk Factor Score: 1 Thrombosis Risk Factor Assessment Level: Low Risk Assessment and Plan Plan: -acute diverticulitis continue with IV antibiotics as mentioned above further plan as mentioned above pain management with the Toradol as needed.full liquid diet will be continued patient will continue soft diet upon discharge once his diabetic lightest results patient need to be on high-fiber diet -obesity: Counseling was provided -Chronic low back pain
[2017-12-28] MEDS: FAMOTIDINE 20 MG TAB PO SCH (19:50)
[2017-12-28] MEDS ORDERED: LEVOFLOXACIN 500MG-D5W PMX 500 MG in DEXTROSE/WATER 1 100ML.BAG IVPB SCH (21:00)
[2017-12-29] MEDS: metroNIDAZOLE-NS PMX 500 MG in SALINE 1 100ML.BAG IVPB SCH ×2 (00:04→08:16)
[2017-12-29 00:38] VITALS: RESP 16
[2017-12-29 07:17] LABS: HCT 37.3 % (39.0-53.0); HGB 13.1 gm/dL (13.0-17.5); MCH 29.7 pg (25.0-35.0); Mean Platelet Volume 6.7; Platelet Count 255 k/uL (150-450); RBC 4.39 m/uL (4.30-5.90); RDW 12.3 % (11.5-15.5); WBC 5.5 k/uL (3.8-10.6)
[2017-12-29 07:30] LABS: Anion Gap 11 mmol/L; Blood Urea Nitrogen 12 mg/dL (9-20); Calcium 9.2 mg/dL (8.4-10.2); Carbon Dioxide 27 mmol/L (22-30); Chloride 103 mmol/L (98-107); Glucose 82 mg/dL (74-99); Potassium 4.3 mmol/L (3.5-5.1); Sodium 141 mmol/L (137-145)
[2017-12-29] MEDS: FAMOTIDINE 20 MG TAB PO SCH (08:16)
[2017-12-29 09:17] VITALS: BP 114/74; PULSE 79; TEMP 97.5
--- NOTE | 2017-12-29 10:17 | P.DS ---
Providers Date of admission: 12/28/17 00:21 Attending physician: Hugh Perales MD Primary care physician: Yusuf Hoskins MD Hospital Course: 43-year-old male with no major medical problems admitted for diverticulitis. Improved symptoms still has little bit of tenderness in the left lower quadrant and patient already has will antibiotics in the form of metronidazole and ciprofloxacin which will continue and complete 8 more days of therapy. Patient was asked to be on soft diet for about a week followed by high fiber diet. If his pain worsens or doesn't get better patient was asked to come back or call primary care physician. His diarrhea resolved. PHYSICAL EXAMINATION: GENERAL: The patient is alert and oriented x3, not in any acute distress. Well developed, well nourished. HEENT: Pupils are round and equally reacting to light. EOMI. No scleral icterus. No conjunctival pallor. Normocephalic, atraumatic. No pharyngeal erythema. No thyromegaly. CARDIOVASCULAR: S1 and S2 present. No murmurs, rubs, or gallops. PULMONARY: Chest is clear to auscultation, no wheezing or crackles. ABDOMEN: Soft, minimal abdominal tenderness in the left lower quadrant bowel sounds no organomegaly MUSCULOSKELETAL: No joint swelling or deformity. EXTREMITIES: No cyanosis, clubbing, or pedal edema. NEUROLOGICAL: Gross neurological examination did not reveal any focal deficits. SKIN: No rashes. Patient Condition at Discharge: Serious Plan - Discharge Summary Discharge Rx Participant: Yes New Discharge Prescriptions: No Action metroNIDAZOLE [Flagyl] 500 mg PO BID Multivitamins, Thera [Multivitamin (formulary)] 1 tab PO DAILY Ciprofloxacin HCl [Cipro] 500 mg PO BID Magnesium 200 mg PO DAILY Fish Oil/Dha/Epa [Fish Oil 1,200 mg Fish Oil] 1 cap PO DAILY Discharge Medication List Ciprofloxacin HCl [Cipro] 500 mg PO BID 12/27/17 [History] Fish Oil/Dha/Epa [Fish Oil 1,200 mg Fish Oil] 1 cap PO DAILY 12/27/17 [History] Magnesium 200 mg PO DAILY 12/27/17 [History] Multivitamins, Thera [Multivitamin (formulary)] 1 tab PO DAILY 12/27/17 [History ] metroNIDAZOLE [Flagyl] 500 mg PO BID 12/27/17 [History] Follow up Appointment(s)/Referral(s): Yusuf Hoskins MD [Primary Care Provider] - 3 Days Activity/Diet/Wound Care/Special Instructions: Soft diet for a week followed by high fiber diet. Patient can return to work next Saturday if his symptoms continue to improve
== END 2017-12-29 11:00 | disposition home or self-care (01) | DRG 392 ==
LOC: EC 18:29 → 3SUR 12-28 00:21
PROVIDERS: ADMIT Internal Medicine; ATTEND Internal Medicine
DX: K57.32 Diverticulitis of large intestine without perforation or abscess without bleeding (principal); E66.9 Obesity, unspecified; G89.29 Other chronic pain; M54.5 Low back pain; Z68.35 Body mass index [BMI] 35.0-35.9, adult; Z71.3 Dietary counseling and surveillance; Z79.899 Other long term (current) drug therapy; Z87.891 Personal history of nicotine dependence; Z82.49 Family history of ischemic heart disease and other diseases of the circulatory system; Z82.69 Family history of other diseases of the musculoskeletal system and connective tissue
CPT/HCPCS: 36415; 74177; 80048; 80053; 81001; 82150; 83690; 85025; 85027; 87040; 87086; 99285

== ENCOUNTER → 2018-03-28 | Day surgery (SDC) | payer OTHER ==
[2018-03-25 10:47] VITALS: BMI 34.8
[~2018-03-28] MED LIST: LACTATED RINGERS 1,000 ML IV SCH; LIDOCAINE 1% 20 ML VIAL (10MG/ML) FOR IV START INTRADERMA ONE; LIDOCAINE 1% INJ 10MG/ML (20 ML MDV) ONE; PROPOFOL 10 MG/ML 20 ML VIAL IV ONE
[2018-03-28 09:43] VITALS: TEMP 97.7
--- NOTE | 2018-03-28 10:08 | P.GSHP ---
History of Present Illness H&P Date: 03/28/18 Chief Complaint: Rectal bleeding 42-year-old male recently hospitalized with diverticulitis. Was having some rectal bleeding as well. His occurred about 6-7 weeks ago. No history of similar events in the past. No prior colonoscopy. 2 grandfathers with colon cancer in the past. Past Medical History Past Medical History: No Reported History Additional Past Medical History / Comment(s): hypoglycemia - episode as a young adult. No further issues with this. Shortness of Breath on exercise intermittently. History of Any Multi-Drug Resistant Organisms: None Reported Past Surgical History: Back Surgery Additional Past Surgical History / Comment(s): Back Surgery 2002 - slipped disc Past Anesthesia/Blood Transfusion Reactions: No Reported Reaction Smoking Status: Former smoker - Past Family History Father Family Medical History: Deep Vein Thrombosis (DVT) Mother Family Medical History: No Reported History Medications and Allergies Home Medications Medication Instructions Recorded Confirmed Type Fish Oil/Dha/Epa [Fish Oil 1,200 1 cap PO DAILY 12/27/17 03/28/18 History mg Fish Oil] Magnesium 200 mg PO DAILY 12/27/17 03/28/18 History Multivitamins, Thera [Multivitamin 1 tab PO DAILY 12/27/17 03/28/18 History (formulary)] Testosterone [Testosterone 10 MG] 50 mg TOPICAL DAILY 03/24/18 03/28/18 History Allergies Allergy/AdvReac Type Severity Reaction Status Date / Time No Known Allergies Allergy Verified 03/28/18 09:32 Surgical - Exam Vital Signs Temp Pulse Resp BP Pulse Ox 97.7 F 69 18 137/76 93 L 03/28/18 09:42 03/28/18 09:42 03/28/18 09:42 03/28/18 09:42 03/28/18 09:42 Physical exam: General: Well-developed, well-nourished HEENT: Normocephalic, sclerae nonicteric Abdomen: Nontender, nondistended Extremities: No edema Neuro: Alert and oriented Assessment and Plan (1) Rectal bleeding Narrative/Plan: Will proceed with colonoscopy at this time. Current Visit: Yes Status: Acute Code(s): K62.5 - HEMORRHAGE OF ANUS AND RECTUM SNOMED Code(s): 28820210
--- NOTE | 2018-03-28 10:24 | P.PCN ---
Date of Procedure: 03/28/18 Procedure(s) Performed: PREOPERATIVE DIAGNOSIS: Rectal bleeding POSTOPERATIVE DIAGNOSIS: Rectal polyps, diverticulosis PROCEDURE: Colonoscopy with snare polypectomy ANESTHESIA: MAC SURGEON: Israel Breen M.D. SPECIMENS: Rectal polyp 3 ENDOSCOPIC PROCEDURE: The patient was placed on the endoscopy table in the left decubitus position. The Olympus colonoscope was inserted into the anus and passed under direct visualization to the base of the cecum. The appendiceal orifice was visualized. From that point the scope was slowly withdrawn inspecting all surfaces carefully. There were no neoplastic inflammatory or polypoid lesions throughout the cecum, ascending, transverse, descending, and sigmoid colon. In the rectum there was noted to be 3 polyps. The largest measured about 1 cm. These were removed using the snare with cautery technique. The patient had diffuse diverticulosis throughout the colon. No active inflammation was seen. Digital rectal examination was normal. The patient was taken to the recovery room in stable condition per anesthesia guidelines. RECOMMENDATIONS: Await biopsies results. Anticipate follow-up colonoscopy in the short-term.
[2018-03-28 10:28] VITALS: RESP 16
[2018-03-28 10:40] VITALS: BP 123/77; PULSE 63
== END | disposition home or self-care (01) ==
LOC: ORWHC2ENDO 09:20
PROVIDERS: ATTEND Surgery
DX: D12.8 Benign neoplasm of rectum (principal); K57.30 Diverticulosis of large intestine without perforation or abscess without bleeding; Z87.891 Personal history of nicotine dependence; Z80.0 Family history of malignant neoplasm of digestive organs; Z79.890 Hormone replacement therapy
CPT/HCPCS: 88305; 45385; J2001; J2704

== ENCOUNTER → 2020-10-24 | Outpatient (CLI) | payer OTHER ==
--- NOTE | 2020-10-24 13:00 | US ---
EXAMINATION TYPE: US venous doppler duplex LE LT DATE OF EXAM: 10/24/2020 10:44 AM COMPARISON: NONE CLINICAL HISTORY: 45-year-old male M79.89 SWELLING OF LT LIMB,S76.112A STRAIN LT QUADRICEPS MUS. LEFT quadriceps repair. Pain, edema, redness left leg SIDE PERFORMED: left TECHNIQUE: The lower extremity deep venous system is examined utilizing real time linear array sonog shanice with graded compression, doppler sonography and color-flow sonography. FINDINGS: VESSELS IMAGED: Common Femoral Vein Deep Femoral Vein Greater Saphenous Vein * Femoral Vein Popliteal Vein Small Saphenous Vein * Proximal Calf Veins (* superficial vessels) Left Leg: No evidence of DVT as visualized IMPRESSION: No evidence for DVT within the left lower extremity imaged from the groin to the upper calf.
== END ==
LOC: RADUSWWP 10:17
PROVIDERS: ATTEND Orthopaedic Surgery
DX: M79.89 Other specified soft tissue disorders (principal); S76.112A Strain of left quadriceps muscle, fascia and tendon, initial encounter

== ENCOUNTER 2021-01-09 11:19 | Emergency (ER) | payer OTHER ==
[2021-01-09 11:24] VITALS: RESP 18
[2021-01-09] MEDS ORDERED: APIXABAN 5 MG TAB PO STA (12:04)
--- NOTE | 2021-01-09 12:19 | ED ---
Extremity Problem HPI - General Chief complaint: Extremity Problem,Nontraumatic Stated complaint: Blood Clot in leg/sent by Ultrasound Time Seen by Provider: 01/09/21 11:34 Source: patient, RN notes reviewed Mode of arrival: wheelchair Limitations: physical limitation - History of Present Illness Initial comments: Patient is a 45-year-old male that presents to emergency department with a newly on the left popliteal DVT. He noted he had an outpatient ultrasound done this morning for some left lower extremity swelling. He notes that he did have knee surgery on 10/20/2020 did about 3 weeks of physical therapy had to stop due to O+ Covid test. He notes that he restarted physical therapy this past Saturday. He notes that the leg swelling goes down when he puts his feet up and gets worse when he is walking and/or has his feet down. He denied any pain tenderness decreased sensation range of motion strength in that left lower extremity. - Related Data Home Medications Medication Instructions Recorded Confirmed Citalopram Hydrobromide 40 mg PO HS 01/09/21 01/09/21 [Citalopram HBr] Previous Rx's Medication Instructions Recorded Apixaban [Eliquis] 0 mg PO DIRECTED #74 tablet 01/09/21 Allergies Allergy/AdvReac Type Severity Reaction Status Date / Time No Known Allergies Allergy Verified 01/09/21 12:17 Review of Systems ROS Statement: Those systems with pertinent positive or pertinent negative responses have been documented in the HPI. ROS Other: All systems not noted in ROS Statement are negative. Past Medical History Past Medical History: No Reported History Additional Past Medical History / Comment(s): hypoglycemia - episode as a young adult. No further issues with this. Shortness of Breath on exercise intermittently. History of Any Multi-Drug Resistant Organisms: None Reported Past Surgical History: Back Surgery, Orthopedic Surgery Additional Past Surgical History / Comment(s): Back Surgery 2003 - slipped disc Past Anesthesia/Blood Transfusion Reactions: No Reported Reaction Past Psychological History: No Psychological Hx Reported Smoking Status: Never smoker Past Alcohol Use History: Occasional Past Drug Use History: None Reported - Past Family History Father Family Medical History: Deep Vein Thrombosis (DVT) Mother Family Medical History: No Reported History General Exam Limitations: physical limitation General appearance: alert, in no apparent distress, obese Head exam: Present: atraumatic, normocephalic, normal inspection Eye exam: Present: normal appearance, PERRL, EOMI. Absent: scleral icterus, conjunctival injection, periorbital swelling Respiratory exam: Present: normal lung sounds bilaterally. Absent: respiratory distress, wheezes, rales, rhonchi, stridor Cardiovascular Exam: Present: regular rate, normal rhythm, normal heart sounds. Absent: systolic murmur, diastolic murmur, rubs, gallop, clicks GI/Abdominal exam: Present: soft, normal bowel sounds. Absent: distended, tenderness, guarding, rebound, rigid Extremities exam: Present: normal inspection, full ROM, normal capillary refill, other (F lower extremity and knee immobilizer due to recent knee surgery, pedal pulses 2+ bilaterally). Absent: tenderness, pedal edema, joint swelling, calf tenderness Neurological exam: Present: alert, oriented X3, CN II-XII intact Psychiatric exam: Present: normal affect, normal mood Skin exam: Present: warm, dry, intact, normal color. Absent: rash Course Vital Signs 01/09/21 11:21 Temperature 98 F Pulse Rate 90 Respiratory 18 Rate Blood Pressure 157/88 O2 Sat by Pulse 96 Oximetry Medical Decision Making - Medical Decision Making 45-year-old male with left lower extremity swelling. On recent outpatient ultrasound done this morning is noted patient had a left popliteal DVT. 5 mg of pelvic was ordered. Case discussed with Dr. Espinoza, patient can discharge home on anticoagulation and follow-up to primary care. Disposition Clinical Impression: DVT, popliteal, acute Disposition: HOME SELF-CARE Condition: Stable Instructions (If sedation given, give patient instructions): Deep Vein Thrombosis (ED) Additional Instructions: Please return to the Emergency Department if symptoms worsen or any other concerns. Return if any shortness of breath, chest pain occurs. Take anticoagulation as prescribed Follow-up with primary care and surgeon in the next few days. Continue physical therapy. Is patient prescribed a controlled substance at d/c from ED?: No Referrals: Yusuf Hoskins MD [Primary Care Provider] - 1-2 days Time of Disposition: 12:19
[2021-01-09 12:32] VITALS: BP 125/82; PULSE 74; TEMP 98.2
== END 2021-01-09 12:32 | disposition home or self-care (01) ==
LOC: EC 11:19
DX: I82.432 Acute embolism and thrombosis of left popliteal vein (principal)
CPT/HCPCS: 99283

== ENCOUNTER → 2021-01-09 | Outpatient (CLI) | payer OTHER ==
--- NOTE | 2021-01-09 11:29 | US ---
EXAMINATION TYPE: US venous doppler duplex LE LT DATE OF EXAM: 01/09/2021 11:04 AM COMPARISON: Left lower extremity venous ultrasound October 24, 2020 CLINICAL HISTORY: S76.112A Strain of left quadriceps muscle, fascia. Pain after injury. SIDE PERFORMED: Left TECHNIQUE: The lower extremity deep venous system is examined utilizing real time linear array sonog shanice with graded compression, doppler sonography and color-flow sonography. VESSELS IMAGED: Common Femoral Vein Deep Femoral Vein Greater Saphenous Vein * Femoral Vein Popliteal Vein Small Saphenous Vein * Left Leg: Positive for DVT Popliteal Vein Grayscale, color doppler, spectral doppler imaging performed of the deep veins of the left lower extr emity. IMPRESSION: New acute DVT left lower extremity at the popliteal vein level.
== END | disposition home or self-care (01) ==
LOC: RADUSWWP 10:36
PROVIDERS: ATTEND Orthopaedic Surgery
DX: I82.402 Acute embolism and thrombosis of unspecified deep veins of left lower extremity (principal)

== ENCOUNTER → 2021-08-10 | Outpatient (CLI) | payer MEDICAID ==
[2021-08-10 17:32] LABS: African American GFR (CKD) >90 (>60 ml/min/1.73 sqM); Blood Urea Nitrogen 19 mg/dL (9-20); Non-African American GFR(CKD) >90 (>60 ml/min/1.73 sqM)
== END | disposition home or self-care (01) ==
LOC: LABPAT 16:13
PROVIDERS: ATTEND Surgery
DX: Z01.812 Encounter for preprocedural laboratory examination (principal); R60.9 Edema, unspecified
CPT/HCPCS: 36415; 82565; 84520

== ENCOUNTER 2022-03-13 10:41 | Day surgery (SDC) | payer MEDICAID ==
[~2022-03-13 10:41] MED LIST changes: -LIDOCAINE 1% 20 ML VIAL (10MG/ML) FOR IV START INTRADERMA ONE; -LIDOCAINE 1% INJ 10MG/ML (20 ML MDV) ONE; -PROPOFOL 10 MG/ML 20 ML VIAL IV ONE
[2022-03-13 11:05] VITALS: TEMP 97.8
[2022-03-13] MEDS ORDERED: LIDOCAINE 1% (10MG/ML) FOR IV START INTRADERMA ONE (11:15)
[2022-03-13] MEDS ORDERED: PROPOFOL 10 MG/ML 20 ML VIAL IV ONE (12:01)
--- NOTE | 2022-03-13 12:04 | P.GSHP ---
History of Present Illness H&P Date: 03/13/22 Chief Complaint: Colon polyps 46-year-old male here today for colonoscopy. Last colonoscopy 3-4 years ago. 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 Patient has occasional rectal bleeding from hemorrhoids he states. Paternal grandfather with history of colon cancer. Past Medical History Past Medical History: No Reported History, Asthma Additional Past Medical History / Comment(s): hypoglycemia-episode as a young adult. No further issues with this. exercise induced asthma, hx. of rectal bldg & diverticulitis, hx. colon polyps, hx. DVT behind left knee, chronic edma left leg History of Any Multi-Drug Resistant Organisms: None Reported Past Surgical History: Back Surgery, Orthopedic Surgery Additional Past Surgical History / Comment(s): Back Surgery 2002 - slipped disc, repair of left quadricep tendon, venogram Past Anesthesia/Blood Transfusion Reactions: No Reported Reaction Smoking Status: Former smoker - Past Family History Father Family Medical History: Deep Vein Thrombosis (DVT) Mother Family Medical History: No Reported History Medications and Allergies Home Medications Medication Instructions Recorded Confirmed Type Citalopram Hydrobromide 10 mg PO HS 01/09/21 03/13/22 History [Citalopram HBr] Albuterol Inhaler [Ventolin Hfa 2 puff INHALATION RT-QID PRN 08/24/21 03/13/22 History Inhaler] Atorvastatin [Lipitor] 10 mg PO HS 03/09/22 03/13/22 History Allergies Allergy/AdvReac Type Severity Reaction Status Date / Time No Known Allergies Allergy Verified 03/13/22 11:05 Surgical - Exam Vital Signs Temp Pulse Resp BP Pulse Ox 97.8 F 65 16 137/74 95 03/13/22 11:04 03/13/22 11:04 03/13/22 11:04 03/13/22 11:04 03/13/22 11:04 Physical exam: General: Well-developed, well-nourished HEENT: Normocephalic, sclerae nonicteric Abdomen: Nontender, nondistended Extremities: No edema Neuro: Alert and oriented Assessment and Plan (1) Colon polyp Narrative/Plan: Will proceed with colonoscopy. Current Visit: Yes Status: Acute Code(s): K63.5 - POLYP OF COLON SNOMED Code(s): 67833723
--- NOTE | 2022-03-13 12:16 | P.PCN ---
Date of Procedure: 03/13/22 Procedure(s) Performed: PREOPERATIVE DIAGNOSIS: History of colon polyps POSTOPERATIVE DIAGNOSIS: Descending colon polyp, diverticulosis PROCEDURE: Colonoscopy with snare polypectomy ANESTHESIA: MAC SURGEON: Israel Breen M.D. SPECIMENS: Polyp ENDOSCOPIC PROCEDURE: The patient was placed on the endoscopy table in the left decubitus position. The Olympus colonoscope was inserted into the anus and passed under direct visualization to the base of the cecum. The appendiceal orifice was visualized. From that point the scope was slowly withdrawn inspecting all surfaces carefully. There were no neoplastic inflammatory or polypoid lesions throughout the cecum, ascending, and transverse colon. In the descending colon at 65 cm there was a small polyp seen and removed using the snare with cautery technique. The remainder of the descending sigmoid and rectum appeared normal. There is extensive diverticulosis throughout the colon. The patient's prep was slightly suboptimal. Digital rectal examination was normal. The patient was taken to the recovery room in stable condition per anesthesia guidelines. RECOMMENDATIONS: await biopsy results. Repeat colonoscopy in 5 years.
[2022-03-13 12:36] VITALS: PULSE 55
[2022-03-13 12:52] VITALS: BP 133/83; RESP 16
== END 2022-03-13 12:55 | disposition home or self-care (01) ==
LOC: ORWHC2ENDO 10:41
PROVIDERS: ATTEND Surgery
DX: D12.4 Benign neoplasm of descending colon (principal); K57.30 Diverticulosis of large intestine without perforation or abscess without bleeding; Z86.010 Personal history of colon polyps; Z80.0 Family history of malignant neoplasm of digestive organs; J45.990 Exercise induced bronchospasm; G47.33 Obstructive sleep apnea (adult) (pediatric); Z87.891 Personal history of nicotine dependence; E66.01 Morbid (severe) obesity due to excess calories; Z68.41 Body mass index [BMI] 40.0-44.9, adult; Z79.899 Other long term (current) drug therapy; Z86.718 Personal history of other venous thrombosis and embolism; Z82.49 Family history of ischemic heart disease and other diseases of the circulatory system
CPT/HCPCS: 88305; 45385; J2704

== ENCOUNTER → 2022-04-06 | Day surgery (SDC) | payer MEDICAID ==
[2022-04-03 13:40] VITALS: BMI 41.8
[~2022-04-06] MED LIST changes: +ACETAMINOPHEN TAB 325 MG TAB PO SCH; +ACETAMINOPHEN TAB 500 MG TAB PO PRN; +BUPIVACAINE (PF) 0.25% 30 ML VIAL SQ ONE; +DEXAMETHASONE SOD PHOSPHATE 10 MG/ML 1 ML VIAL ONE; +DEXAMETHASONE SOD PHOSPHATE 4 MG/ML 1 ML VIAL IV ONE; +HEPARIN SODIUM,PORCINE/PF 5,000 UNIT/0.5 ML SYRINGE SQ PRN; +HYDROmorphone 0.5 MG/0.5 ML SYRINGE IVP PRN; +IBUPROFEN 600 MG TAB PO SCH; +KETOROLAC 15 MG/ML 1 ML VIAL IVP ONE; +KETOROLAC 15 MG/ML 1 ML VIAL ONE; +LIDOCAINE 1% (10MG/ML) FOR IV START INTRADERMA PRN; +LIDOCAINE 2% INJ 20 MG/ML (2 ML VIAL) ONE; +MIDAZOLAM 2 MG/2 ML VIAL IV PRN; +MIDAZOLAM 2 MG/2 ML VIAL ONE; +ONDANSETRON 4 MG/2 ML VIAL IVP ONE; +PROPOFOL 10 MG/ML 20 ML VIAL IV ONE; +ROCURONIUM 10 MG/ML (5 ML VIAL) IV ONE; +ROPIVACAINE 5 MG/ML 30 ML VIAL ONE; +SODIUM CHLORIDE 0.9% (PF) 10 ML VIAL ONE; +SUCCINYLCHOLINE CHLORIDE 200 MG/10 ML VIAL IV ONE; +ceFAZolin 3 GM in SODIUM CHLORIDE 0.9% 100 ML IVPB PRN; +fentaNYL (PF) 50 MCG/ML 2 ML AMP ONE
[2022-04-06 06:51] LABS: Glucose,Whole Blood 117 mg/dL (70-110)
--- NOTE | 2022-04-06 07:30 | P.GSHP ---
History of Present Illness H&P Date: 04/06/22 Chief Complaint: Incarcerated umbilical hernia 46-year-old male here today for repair incarcerated umbilical hernia. Patient has had this hernia for many years. Increasing in size. Mild pain at times. Past Medical History Past Medical History: Deep Vein Thrombosis (DVT), Hyperlipidemia Additional Past Medical History / Comment(s): LT LEG DVT History of Any Multi-Drug Resistant Organisms: None Reported Past Surgical History: Back Surgery, Orthopedic Surgery Additional Past Surgical History / Comment(s): Back Surgery 2002 - slipped disc, LEFT KNEE SX, COLONOSCOPY Past Anesthesia/Blood Transfusion Reactions: No Reported Reaction Smoking Status: Former smoker - Past Family History Father Family Medical History: Deep Vein Thrombosis (DVT) Mother Family Medical History: No Reported History Medications and Allergies Home Medications Medication Instructions Recorded Confirmed Type Citalopram Hydrobromide 10 mg PO HS 01/09/21 04/06/22 History [Citalopram HBr] Albuterol Inhaler [Ventolin Hfa 2 puff INHALATION RT-QID PRN 08/24/21 04/06/22 History Inhaler] Atorvastatin [Lipitor] 10 mg PO HS 03/09/22 04/06/22 History Allergies Allergy/AdvReac Type Severity Reaction Status Date / Time No Known Allergies Allergy Verified 04/06/22 06:37 Surgical - Exam Vital Signs Temp Pulse Resp BP Pulse Ox 97.6 F 60 16 154/73 95 04/06/22 06:46 04/06/22 06:46 04/06/22 06:46 04/06/22 06:46 04/06/22 06:46 Physical exam: General: Well-developed, well-nourished HEENT: Normocephalic, sclerae nonicteric Abdomen: Nontender, nondistended, incarcerated umbilical hernia Extremities: No edema Neuro: Alert and oriented Results - Labs Abnormal Lab Results - Last 24 Hours (Table) 04/06/22 Range/Units 06:49 POC Glucose (mg/dL) 117 H (70-110) mg/dL Assessment and Plan (1) Incarcerated umbilical hernia Narrative/Plan: 46-year-old male with incarcerated umbilical hernia. Proceed with umbilical hernia repair open with mesh at this time. Risks of bleeding, infection, recurrence, bladder and bowel injury, numbness, nerve injury were discussed with the patient. The patient understands and wishes to proceed. Current Visit: Yes Status: Acute Code(s): K42.0 - UMBILICAL HERNIA WITH OBSTRUCTION, WITHOUT GANGRENE SNOMED Code(s): 598581269
--- NOTE | 2022-04-06 08:26 | P.ANPRN ---
Procedure Note - Anesthesia - Nerve Block Performed Bilateral Erector Spinae Single Time Out Performed: Yes Date of Procedure: 04/06/22 Procedure Start Time: Procedure Stop Time: Location of Patient: PreOp Indication: Acute Post-Operative Pain, Requested by Surgeon Sedation Type: Sedate with meaningful contact maintained Preparation: Sterile Prep, Sterile Dressing Position: Prone Catheter: None Needle Types: On-Q Needle Gauge: 20 Ultrasound used to visualize needle placement: Yes Ultrasound used to observe medication spread: Yes Injectate: 0.5% Ropivacaine (see comment for volume) (20 ml + decadron 4 mg per side diluted to 30 ml with NSS) Blood Aspirated: No Pain Paresthesia on Injection Noted: No Resistance on Injection: Normal Image Stored and Saved: Yes Events: Uneventful and Well Tolerated
--- NOTE | 2022-04-06 08:56 | P.OP ---
Date of Procedure: 04/06/22 Procedure(s) Performed: PREOPERATIVE DIAGNOSIS: Incarcerated umbilical hernia POSTOPERATIVE DIAGNOSIS: Same PROCEDURE: Repair incarcerated umbilical hernia with mesh SURGEON: Dr. Breen ANESTHESIA: General OPERATIVE PROCEDURE DETAILS: The patient was placed in the operating table in the supine position. A right sided periumbilical incision was made using the scalpel. The subcutaneous tissues were dissected bluntly and with cautery. The hernia sac was identified. The umbilical attachments to the fascia were divided using electrocautery. The hernia sac was excised. The defect in the fascia measured 2.2 x 1.2 cm The fat overlying the fascia was dissected. No additional defects were seen. The preperitoneal space was then dissected using blunt dissection and electrocautery. The 6.4 cm ventral ex mesh was placed beneath the fascia and sutured in place using trans-fascial 0 Ethibond sutures. The secure strap was also utilized. The defect was closed using interrupted [id number] 0 Ethibond mattress sutures. The folding edge was sutured down using interrupted 0 Ethibond sutures as well. The subcutaneous tissues were reapproximated using inverted 2-0 & 3-0 Vicryl sutures. The umbilicus was tacked back down to the fascia using a 2-0 Vicryl suture. The skin was closed using 4-0 Monocryl sutures. Skin glue and sterile dressings were then applied. HERNIA CHARACTERISTICS: Length: 2.2 cm Width: 1.2 cm Type: Umbilical TYPE OF MESH USED: 6.4; around ventral ex LOCATION OF MESH: Sub-lay FIXATION: 0 Ethibond sutures PREOPERATIVE DISCUSSION ON SMOKING CESSASTION: Yes PREOPERATIVE DISCUSSION ON MORBID OBESITY: Yes PREOPERATIVE DISCUSSION ON APPROPRIATE USE OF NARCOTIC USE: Yes PREOPERATIVE EDUCATION: Multi Modal, Smoking Cessation and Weight Loss with BMI over 35. DISPOSITION: Stable to recovery room
[2022-04-06 09:06] VITALS: TEMP 97.1
[2022-04-06 10:22] VITALS: RESP 16
[2022-04-06 12:45] VITALS: BP 164/85; PULSE 78
== END ==
LOC: OR 06:23
PROVIDERS: ATTEND Surgery
DX: K42.0 Umbilical hernia with obstruction, without gangrene (principal); G89.18 Other acute postprocedural pain; E78.5 Hyperlipidemia, unspecified; G47.33 Obstructive sleep apnea (adult) (pediatric); E66.01 Morbid (severe) obesity due to excess calories; Z68.41 Body mass index [BMI] 40.0-44.9, adult; J45.909 Unspecified asthma, uncomplicated; Z87.891 Personal history of nicotine dependence; Z79.899 Other long term (current) drug therapy; Z82.49 Family history of ischemic heart disease and other diseases of the circulatory system
CPT/HCPCS: 64999; 88302; 49587; C1781; J2250; J0330; J1100 ×2; J0690; J2405; J3010; J2795; J1885; J2704; J1170; J1644; J2001